=== PATIENT | male | born 1990 | race Caucasian/White ===

== ENCOUNTER 2022-11-21 14:05 | Emergency (ER) | payer SELFPAY ==
[2022-11-21 14:11] VITALS: BP 137/98; PULSE 73; RESP 20; TEMP 37.6; O2SAT 100; BMI 34.2
[2022-11-21] MEDS: 0.9 % SODIUM CHLORIDE 1,000 ML 1000 ML IV (14:33)
[2022-11-21 14:44] LABS: Basophils Absolute Auto 0.1 10^3/uL (0.0-0.1); Basophils Percent Auto 0.3 % (0.2-2.0); Eosinophils Percent Auto 0.1 % (0.9-7.0); Hematocrit 46.4 % (42.0-54.0); Hemoglobin 16.3 g/dL (14.0-18.0); Immature Granulocytes Abs Auto 0.06 10^3/uL (0.00-0.03); Immature Granulocytes Pct Auto 0.4 % (0.0-0.5); Lymphocytes Absolute Auto 1.8 10^3/uL (1.2-3.8); Lymphocytes Percent Auto 12.6 % (20.5-60.0); Mean Corpuscular HGB Conc 35.1 g/dL (29.9-35.2); Mean Corpuscular Hemoglobin 31.8 pg (25.9-34.0); Mean Corpuscular Volume 90.4 fL (80.0-94.0); Mean Platelet Volume 10.2 fL (9.5-13.5); Monocytes Absolute Auto 0.8 10^3/uL (0.3-0.8); Monocytes Percent Auto 5.6 % (1.7-12.0); Neutrophils Absolute Auto 11.8 10^3/uL (1.4-6.5); Platelet Count 354 10^3/uL (150-450); Red Blood Count 5.13 10^6/uL (4.70-6.10); Red Cell Distribution Width 12.3 % (11.0-15.0); White Blood Count 14.6 10^3/uL (4.0-11.0)
--- NOTE | 2022-11-21 14:49 | ED_ITS ---
HPI - Nausea/Vomiting/Diarrhea General Chief complaint: Nausea/Vomiting/Diarrhea Stated complaint: FLU ;LIKE SYMPTOMS Time Seen by Provider: 11/21/22 14:18 Source: patient Mode of arrival: walk-in Limitations: no limitations History of Present Illness HPI Narrative: 32-year-old male presents with an episode of pain on the left side of his body from his lower leg on the way up to his shoulder that happened at work today. He states he came in here today because he left work early and he did not have any choice but to come here. He states his pain only lasted a couple seconds. He states that he had this pain 3 days ago as well. Denies any current pain. He started having vomiting and diarrhea 2 days ago and today only has watery diarrhea. Denies fever, sore throat, ear pain, cough, abd or back pain, dys uria, SOB or CP Related Data Home Medications Medication Instructions Recorded Confirmed No Known Home Medications 11/21/22 11/21/22 Allergies Allergy/AdvReac Type Severity Reaction Status Date / Time No Known Drug Allergies Allergy Verified 11/21/22 14:09 Review of Systems ROS Status of ROS 10 or more systems reviewed and unremarkable except as noted in history and below Exam Narrative Exam Narrative: General: A&Ox3, no distress, talking in full an complete sentences skin: warm, dry, intact head: normocephalic, atraumatic eyes: EOMI nose: nares patent neck: supple, trachea midline respiratory: non-labored extremities: FROM x 4, strength +5/5 abd: soft, NT neuro: A&Ox3 psych: appropriate mood and affect, cooperative Constitutional Vital Signs, click to edit/add: Last Vital Signs Temp 99.7 F 11/21/22 14:11 Pulse 65 11/21/22 15:50 Resp 13 11/21/22 15:50 BP 151/96 H 11/21/22 15:16 Pulse Ox 99 11/21/22 15:50 O2 Del Method Room Air 11/21/22 15:16 Course Vital Signs Vital signs: Vital Signs Temperature 99.7 F 11/21/22 14:11 Pulse Rate 73 11/21/22 14:11 Respiratory Rate 20 11/21/22 14:11 Blood Pressure 137/98 H 11/21/22 14:11 Pulse Oximetry 100 11/21/22 14:11 Oxygen Delivery Method Room Air 11/21/22 14:11 Temperature 99.7 F 11/21/22 14:11 Pulse Rate 65 11/21/22 15:50 Respiratory Rate 13 11/21/22 15:50 Blood Pressure 151/96 H 11/21/22 15:16 Pulse Oximetry 99 11/21/22 15:50 Oxygen Delivery Method Room Air 11/21/22 15:16 MDM - Nausea/Vomiting/Diarrhea MDM Narrative Medical decision making narrative: Patient will be given IV fluids. Patient is not currently in pain and no signs of surgical abdomen I do not believe that he needs imaging. WBC 14.6. Likely reactive. Potassium 3.2 and given 40 mill equivalents orally and magnesium 1.7 given 400 mg magnesium orally. EKG sinus rhythm at a rate of 56. Serum glucose 220. No other significant abnormalities. Negative for COVID and influenza. Likely a viral gastroenteritis. A1c 5.6 and likely a stress reaction hyperglycemia. F/u with PCP. afebrile, not tachypneic, not tachycardic, not hypoxic, non toxic appearing and ambulating at baseline and hemodynamically stable to be d/c. answered all questions. pt in agreement with tx. educated when to return to ER. Nurse went into the room to discharge patient and patient left without telling anyone Differential Diagnosis Differential diagnosis: Likely food poisoning and gastroenteritis Lab Data Labs: Lab Results 11/21/22 11/21/22 11/21/22 Range/Units 12:46 14:23 14:30 WBC 14.6 H (4.0-11.0) 10^3/uL RBC 5.13 (4.70-6.10) 10^6/uL Hgb 16.3 (14.0-18.0) g/dL Hct 46.4 (42.0-54.0) % MCV 90.4 (80.0-94.0) fL MCH 31.8 (25.9-34.0) pg MCHC 35.1 (29.9-35.2) g/dL RDW 12.3 (11.0-15.0) % Plt Count 354 (150-450) 10^3/uL MPV 10.2 (9.5-13.5) fL Neut % (Auto) 81.0 H (43.0-75.0) % Lymph % (Auto) 12.6 L (20.5-60.0) % [place] % (Auto) 5.6 (1.7-12.0) % Eos % (Auto) 0.1 L (0.9-7.0) % Baso % (Auto) 0.3 (0.2-2.0) % Neut # (Auto) 11.8 H (1.4-6.5) 10^3/uL Lymph # (Auto) 1.8 (1.2-3.8) 10^3/uL [place] # (Auto) 0.8 (0.3-0.8) 10^3/uL Eos # (Auto) 0.0 (0.0-0.7) 10^3/uL Baso # (Auto) 0.1 (0.0-0.1) 10^3/uL Abs Immat Gran (auto) 0.06 H (0.00-0.03) 10^3/uL Imm/Tot Granulo (auto) 0.4 (0.0-0.5) % Sodium 140 (136-145) mmol/L Potassium 3.2 L (3.5-5.1) mmol/L Chloride 99 (98-107) mmol/L Carbon Dioxide 29.1 (21.0-32.0) mmol/L Anion Gap 15.1 BUN 10.0 (7.0-18.0) mg/dL Creatinine 1.11 (0.70-1.30) mg/dL Est GFR ( Amer) >60 (>=60) Est GFR (Non-Af Amer) >60 (>=60) BUN/Creatinine Ratio 9.0 Glucose 220 H (74-106) mg/dL Estimat Average Glucose 114 mg/dL Hemoglobin A1c 5.6 (4.5-6.2) % Calcium 9.3 (8.5-10.1) mg/dL Magnesium 1.7 L (1.8-2.4) mg/dL Total Bilirubin 0.6 (0.2-1.0) mg/dL AST 14 L (15-37) U/L ALT 42 (16-63) U/L Alkaline Phosphatase 69 (46-116) U/L Troponin I High Sens 4.1 (4.0-76.1) pg/mL Total Protein 8.4 H (6.4-8.2) g/dL Albumin 4.6 (3.4-5.0) g/dL Globulin 3.8 g/dL Albumin/Globulin Ratio 1.2 SARS-CoV-2 (PCR) Negative (NEGATIVE) Influenza Type A Ag Negative Influenza Type B Ag Negative Discharge Plan Discharge Chief Complaint: Nausea/Vomiting/Diarrhea Clinical Impression: Gastroenteritis, Acute hypokalemia, Hypomagnesemia, Stress hyperglycemia Patient Disposition: Home, Self-Care Time of Disposition Decision: 15:52 Condition: Good Mode of Transportation: Private Vehicle Prescriptions / Home Meds: No Action No Known Home Medications Instructions: Hypokalemia (ED), Gastroenteritis (ED), Hypomagnesemia (ED) Stand Alone Forms: Portal Instructions Referrals: Physician,Non-Staff, MD [Primary Care Provider] - 1 week
--- NOTE | 2022-11-21 14:50 | ECG_ITS ---
[facility] Test Date: 2022-11-21 Pat Name: VANDA GRACIA Department: Room: - Gender: Male Clinical Research Administrator: : 1990 Requested By: [id number] Order Number: [id number] Reading MD: CORONA CAMPBELL Measurements Intervals [place] [employer] Rate: 56 P: 27 NE: 152 QRS: 41 QRSD: 92 T: 14 QT: 374 QTc: 366 Interpretive Statements 1100 Sinus rhythm 1102 Sinus arrhythmia 9110 normal ECG No previous ECG available for comparison Electronically Signed On 11-22-2022 7:02:02 EDT by CORONA CAMPBELL
[2022-11-21 14:59] LABS: Alanine Aminotransferase 42 U/L (16-63); Albumin Globulin Ratio 1.2; Albumin Level 4.6 g/dL (3.4-5.0); Alkaline Phosphatase 69 U/L (46-116); Anion Gap 15.1; Aspartate Amino Transferase 14 U/L (15-37); Bilirubin Total 0.6 mg/dL (0.2-1.0); Calcium 9.3 mg/dL (8.5-10.1); Carbon Dioxide 29.1 mmol/L (21.0-32.0); Chloride 99 mmol/L (98-107); Estimated GFR (African America >60 (>=60); Estimated GFR (Non-African Ame >60 (>=60); Globulin 3.8 g/dL; Glucose 220 mg/dL (74-106); Potassium 3.2 mmol/L (3.5-5.1); Sodium 140 mmol/L (136-145); Total Protein 8.4 g/dL (6.4-8.2)
[2022-11-21 15:00] LABS: Magnesium 1.7 mg/dL (1.8-2.4); Troponin I High Sensitivity 4.1 pg/mL (4.0-76.1)
[2022-11-21 15:05] LABS: Influenza Virus A Antigen Negative; Influenza Virus B Antigen Negative; Internal Control Within Normal Limits; SARS-CoV-2 Ag NEGATIVE (NEGATIVE)
[2022-11-21 15:15] VITALS: PULSE 67; RESP 14
[2022-11-21 15:16] VITALS: BP 151/96; PULSE 61; PULSE 68; RESP 12; RESP 16; O2SAT 100
[2022-11-21 15:17] VITALS: PULSE 56
[2022-11-21] MEDS: MAGNESIUM OXIDE 400 MG TABLET PO (15:22)
[2022-11-21] MEDS: POTASSIUM CHLORIDE 10 MEQ ER TABLET 40 MEQ PO (15:30)
[2022-11-21 15:36] LABS: Estimated Average Glucose 114 mg/dL; Glycohemoglobin A1C 5.6 % (4.5-6.2)
[2022-11-21 15:50] VITALS: PULSE 65; RESP 13; O2SAT 99
[2022-11-22 15:33] LABS: SARS-CoV-2 NAA NOT DETECTED (NOT DETECTE)
== END 2022-11-21 16:29 | disposition home or self-care (01) ==
PROVIDERS: Physician Assistant; Emergency Provider Emergency Medicine
DX: K52.9 Noninfective gastroenteritis and colitis, unspecified (principal); E87.6 Hypokalemia; E83.42 Hypomagnesemia; R73.9 Hyperglycemia, unspecified; Z20.822 Contact with and (suspected) exposure to COVID-19
CPT/HCPCS: 36415; 80053; 83036; 83735; 84484; 85025; 87635; 87804; 93005; 99285

== ENCOUNTER 2023-02-08 19:33 | Emergency (ER) | payer SELFPAY ==
--- NOTE | 2023-02-08 19:31 | ECG_ITS ---
[facility] Test Date: 2023-02-08 Pat Name: VANDA GRACIA Department: Room: - Gender: Male [place]: : 1990 Requested By: ALTAF POTTS Order Number: [id number] Reading MD: ALTAF POTTS Measurements Intervals [place] Rate: 78 P: 53 [place]: 178 QRS: 41 QRSD: 96 T: 25 QT: 378 QTc: 411 Interpretive Statements 1100 Sinus rhythm 9110 normal ECG Compared to ECG 11/21/2022 15:15:16 Sinus arrhythmia no longer present Electronically Signed On 02-10-2023 6:21:14 EST by ALTAF POTTS
[2023-02-08 19:36] VITALS: BP 165/108; PULSE 76; RESP 16; TEMP 36.6; O2SAT 97; BMI 33.0
--- NOTE | 2023-02-08 19:42 | ED.GENADUL1 ---
HPI - General Adult General Chief complaint: Overdose Stated complaint: overdose Time Seen by Provider: 02/08/23 19:38 Source: patient Mode of arrival: ambulance History of Present Illness HPI narrative: 33-year-old male brought to emergency room by squad. Patient was found unresponsive after snorting [place]. She denies. EMS states that they gave him 16 mg of narcan nasally. he finally awoke. Patient states he was sleeping and at the squad did not need to do that. Patient does not wish to be evaluated she does not want any blood work. She states He agreed to come by squad because he was threatening to the police station of he cannot get in the squad. His alert at this time. Related Data Home Medications Medication Instructions Recorded Confirmed aripiprazole 5 mg tablet mg 02/08/23 duloxetine 30 mg capsule,delayed mg PO 02/08/23 release lithium carbonate 450 mg mg PO 02/08/23 tablet,extended release mupirocin 2 % topical ointment topical 02/08/23 risperidone 1 mg tablet mg 02/08/23 thiamine HCl (vitamin B1) 100 mg mg 02/08/23 tablet trazodone 50 mg tablet mg 02/08/23 Allergies Allergy/AdvReac Type Severity Reaction Status Date / Time No Known Drug Allergies Allergy Verified 02/08/23 19:39 Review of Systems ROS Narrative All Systems are negative except as noted/marked.All systems reviewed and otherwise negative [facility] Social History Smoking status: Current every day smoker Exam Narrative Exam Narrative: Nurses note and vital signs reviewed and patient is not hypoxic. General: The patient appears well and in no apparent distress. Patient is resting comfortably on cart. Skin: Warm, dry, no pallor noted. There is no rash noted. Head: Normocephalic, atraumatic Eye: Normal conjunctiva, no drainage, EOMI. PERRL Ears, Nose, Mouth, and Throat: oral mucosa is moist. Nares patent. Mouth without vesicles. Ear canals patent. Tm's without Erythema Cardiovascular: Regular Rate and Rhythm Respiratory: Patient is in no distress, no accessory muscle use, lungs are clear to auscultation, no wheezing, rales or rhonchi GI: Normal bowel sounds, no tenderness to palpation, no masses appreciated. No rebound, guarding, or rigidity noted. Musculoskeletal: The patient has no evidence of calf tenderness, no pitting edema, symmetrical pulses noted bilaterally Neurological: A&O x4, normal speech Psychiatric: Cooperative Constitutional Vital Signs, click to edit/add: Last Vital Signs Temp 97.9 F 02/08/23 19:36 Pulse 76 02/08/23 19:36 Resp 16 02/08/23 19:36 BP 165/108 H 02/08/23 19:36 Pulse Ox 97 02/08/23 19:36 O2 Del Method Room Air 02/08/23 19:36 Course Vital Signs Vital signs: Vital Signs Temperature 97.9 F 02/08/23 19:36 Pulse Rate 76 02/08/23 19:36 Respiratory Rate 16 02/08/23 19:36 Blood Pressure 165/108 H 02/08/23 19:36 Pulse Oximetry 97 02/08/23 19:36 Oxygen Delivery Method Room Air 02/08/23 19:36 Temperature 97.9 F 02/08/23 19:36 Pulse Rate 76 02/08/23 19:36 Respiratory Rate 16 02/08/23 19:36 Blood Pressure 165/108 H 02/08/23 19:36 Pulse Oximetry 97 02/08/23 19:36 Oxygen Delivery Method Room Air 02/08/23 19:36 Medical Decision Making MDM Narrative Medical decision making narrative: Patient is refusing to have blood work drawn. Patient will sign out against medical advice. Patient made aware that he has been given Narcan, Patient also made aware at the Narcan does wear off he could unresponsive and . Verbalized understanding. Patient wishes to sign out. Medical Records Medical records reviewed: Yes I reviewed the patient's medical records ECG Data Interpretation: 1935 Normal sinus rhythm with a rate of 78 bpm NC interval 178ms, QRS duration 96 ms, no STEMI no T-wave inversion Discharge Plan Discharge Chief Complaint: Overdose Patient Disposition: Left Against Medical Advice Time of Disposition Decision: 19:48 Prescriptions / Home Meds: No Action trazodone 50 mg tablet thiamine HCl (vitamin B1) 100 mg tablet lithium carbonate 450 mg tablet extended release PO mupirocin 2 % ointment TOPICAL risperidone 1 mg tablet aripiprazole 5 mg tablet duloxetine 30 mg capsule,delayed release(DR/EC) PO Stand Alone Forms: Portal Instructions Referrals: Physician,Non-Staff, MD [Primary Care Provider] - 1 week
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
== END 2023-02-08 19:56 | disposition left against medical advice (07) ==
PROVIDERS: Emergency Provider Emergency Medicine
DX: T40.2X1A Poisoning by other opioids, accidental (unintentional), initial encounter (principal); Z79.899 Other long term (current) drug therapy; F17.210 Nicotine dependence, cigarettes, uncomplicated; Z53.29 Procedure and treatment not carried out because of patient's decision for other reasons
CPT/HCPCS: 80053; 80179; 80307; 80320; 80329; 84484; 93005; 99283